=== PATIENT | female | born 1975 | race Hispanic/Latino ===

== ENCOUNTER 2017-04-12 10:14 | Emergency (ER) | payer BC ==
[2017-04-12] MEDS ORDERED: ONDANSETRON ODT 4 MG TAB ONE (11:00)
[2017-04-12 11:03] LABS: BASOPHILS % (AUTO) 0.5 % (0.0-5.0); HEMATOCRIT 44.5 % (36-48); MEAN CORPUSCULAR HEMOGLOBIN 29.2 pg (27.0-33.0); MEAN CORPUSCULAR HGB CONC 33.7 g/dL (32.0-36.0); MEAN CORPUSCULAR VOLUME 86.6 fL (79-99); MONOCYTES % (AUTO) 15.5 % (3.0-13.0); PLATELET COUNT (AUTO) 406 K/uL (130-400); RED BLOOD CELL COUNT(AUTO) 5.14 MIL/uL (4.00-5.50); RED CELL DISTRIBUTION WIDTH 13.9 % (11.0-15.5); WHITE BLOOD COUNT (AUTO) 4.9 K/uL (4.8-10.8)
[2017-04-12 11:06] LABS: APPEARANCE,URINE Cloudy (CLEAR); BILIRUBIN,URINE Negative (NEGATIVE); COLOR,URINE Dark Yellow (YELLOW); GLUCOSE, URINE (UA) Negative (NEGATIVE); KETONES,URINE >=80 mg/dL (NEGATIVE); LEUKOCYTE ESTERASE ,URINE Small (NEGATIVE); NITRATE,URINE Negative (NEGATIVE); OCCULT BLOOD,URINE Large (NEGATIVE); PH,URINE 5.5 (5.0-8.0); PROTEIN,URINE POS 2+ (NEGATIVE)
[2017-04-12 11:17] LABS: CREATININE 0.8 mg/dL (0.5-1.5); POTASSIUM 3.2 mmol/L (3.5-5.1)
[2017-04-12 11:18] LABS: HCG,QUAL RESULT NEGATIVE (NEGATIVE)
[2017-04-12 11:22] LABS: BILIRUBIN,TOTAL 0.4 mg/dL (0.2-1.0); TOTAL PROTEIN, SERUM 8.6 g/dL (6.0-8.3)
[2017-04-12 11:51] LABS: BACTERIA,URINE Many /HPF (None Seen); SQUAMOUS EPITHELIAL CELL,UR 30-50 /LPF (0-2)
[2017-04-12] MEDS ORDERED: POTASSIUM CHLORIDE 20 MEQ ERTAB PO ONE (12:00)
[2017-04-12] MEDS ORDERED: KETOROLAC TROMETHAMINE 30MG/ML ONE (12:01)
== END 2017-04-12 12:18 | disposition home or self-care (01) ==
LOC: EDH 10:14
DX: R10.84 Generalized abdominal pain (principal); B96.81 Helicobacter pylori [H. pylori] as the cause of diseases classified elsewhere; K21.9 Gastro-esophageal reflux disease without esophagitis
CPT/HCPCS: 36415; 80053; 81001; 81025; 82150; 83690; 85025; 86677; 87804 ×2; 96372; 99284; J1885

== ENCOUNTER 2022-04-30 14:23 | Emergency (ER) | payer BC ==
[~2022-04-30] VITALS: Ht 154.9 cm; Wt 81.6 kg
[2022-04-30 16:24] VITALS: BP 145/90
== END 2022-04-30 16:49 | disposition home or self-care (01) ==
LOC: EDH 14:23
DX: R03.0 Elevated blood-pressure reading, without diagnosis of hypertension (principal); R51.9 Headache, unspecified
CPT/HCPCS: 99284; 87635; 84484; 87804 ×2; 93005; C9803

== ENCOUNTER 2023-06-07 13:08 | Emergency (ER) | payer BC ==
[~2023-06-07] VITALS: Ht 154.9 cm; Wt 83.9 kg
[2023-06-07 13:52] LABS: SARS-CoV-2, RNA, NAAT NEGATIVE SARS CoV-2 (NEGATIVE)
[2023-06-07 13:54] LABS: INFLUENZA TYPE A Negative For Type A (NEGATIVE); INFLUENZA TYPE B Negative For Type B (NEGATIVE)
[2023-06-07] MEDS: IPRATROPIUM/ALBUTEROL SULFATE 3 ML SOLUTION IH ONE ×2 (15:06→17:09)
[2023-06-07 15:08] VITALS: PULSE 90; RESP 20
[2023-06-07] MEDS: 0.9%NACL 1000ML 1,000 ML IV ONE (15:18)
[2023-06-07] MEDS: BENZONATATE 100 MG CAPSULE PO ONE (15:19)
[2023-06-07] MEDS: KETOROLAC 30MG VIAL (30MG/ML) IVP ONE (15:19)
[2023-06-07] MEDS: DEXAMETHASONE SOD PHOSPHATE 4 MG/ML 1ML VIAL IVP ONE (15:19)
[2023-06-07 15:22] LABS: BASOPHILS # (AUTO) 0.05 K/uL (0.00-0.20); BASOPHILS % (AUTO) 0.4 % (0.0-5.0); EOSINOPHILS # (AUTO) 0.17 K/uL (0.00-0.70); EOSINOPHILS % (AUTO) 1.4 % (0.0-8.0); HEMATOCRIT 41.4 % (36-48); IMMATURE GRANULOCYTE ABSOLUTE 0.04 K/uL (0-1); LYMPHOCYTES # (AUTO) 1.2 K/uL (1.0-4.8); MEAN CORPUSCULAR HGB CONC 32.9 g/dL (32.0-36.0); MEAN CORPUSCULAR VOLUME 85.2 fL (79-99); MONOCYTES # (AUTO) 0.7 K/uL (0.1-1.0); MONOCYTES % (AUTO) 6.1 % (3.0-13.0); NEUTROPHILS # (AUTO) 9.7 K/uL (1.8-7.7); NEUTROPHILS % (AUTO) 81.8 % (40.0-77.0); PLATELET COUNT (AUTO) 410 K/uL (130-400); RED BLOOD CELL COUNT(AUTO) 4.86 MIL/uL (4.00-5.50); RED CELL DISTRIBUTION WIDTH 14.2 % (11.0-15.5); WHITE BLOOD COUNT (AUTO) 11.9 K/uL (4.8-10.8)
[2023-06-07 15:27] LABS: APPEARANCE,URINE CLEAR (CLEAR); BILIRUBIN,URINE NEGATIVE (NEGATIVE); COLOR,URINE LIGHT-YELLOW (YELLOW); GLUCOSE, URINE (UA) NEGATIVE (NEGATIVE); KETONES,URINE 5 mg/dL (NEGATIVE); LEUKOCYTE ESTERASE ,URINE NEGATIVE Leu/uL (NEGATIVE); NITRATE,URINE NEGATIVE (NEGATIVE); OCCULT BLOOD,URINE NEGATIVE (NEGATIVE); PROTEIN,URINE NEGATIVE (NEGATIVE); UROBILINOGEN,URINE 0.2 mg/dL (0.2-1.0)
[2023-06-07 15:33] LABS: HCG,QUALITATIVE URINE NEGATIVE (NEGATIVE)
[2023-06-07 15:35] LABS: CREATININE 0.7 mg/dL (0.5-1.5); POTASSIUM 3.4 mmol/L (3.5-5.1)
[2023-06-07 15:39] LABS: ADD UA MICROSCOPIC YES
[2023-06-07 15:40] LABS: ALBUMIN 4.1 g/dL (3.5-5.0); BILIRUBIN,TOTAL 0.4 mg/dL (0.2-1.0); TOTAL PROTEIN, SERUM 8.7 g/dL (6.0-8.3)
[2023-06-07 15:41] LABS: RBC,URINE 0-1 /HPF (0-1); SQUAMOUS EPITHELIAL CELL,UR RARE /HPF (0-2); WBC,URINE 0-1 /HPF (0-1)
[2023-06-07] MEDS: POTASSIUM BICARB/CIT AC 25 MEQ TABLET.EFF PO ONE (16:11)
[2023-06-07] MEDS: CEFTRIAXONE 1G VIAL IVPB ONE (16:11)
[2023-06-07] MEDS ORDERED: ALBU18HF7 IH (16:14)
[2023-06-07] MEDS ORDERED: METH4TAB3 PO (16:14)
[2023-06-07] MEDS ORDERED: AZIT250T PO (16:14)
[2023-06-07] MEDS ORDERED: IOHEXOL-350 75 ML VIAL IV ONE (16:45)
[2023-06-07 17:11] VITALS: PULSE 115; RESP 21
[2023-06-07 17:48] VITALS: BP 144/90; PULSE 97; RESP 20; O2SAT 9
== END 2023-06-07 17:58 | disposition home or self-care (01) ==
LOC: EDH 13:08
DX: J20.9 Acute bronchitis, unspecified (principal); R05.9 Cough, unspecified; R06.02 Shortness of breath; M54.6 Pain in thoracic spine; E87.6 Hypokalemia; R79.89 Other specified abnormal findings of blood chemistry; Z20.822 Contact with and (suspected) exposure to COVID-19
CPT/HCPCS: 99284; 96365; 71270; 71045; 96375; 87635; 80053; 85025; 85378; 87804 ×2; 81001; 81025; 36415; 94640 ×2; J1100; J7030; J0696; J1885; Q9967

== ENCOUNTER 2024-09-21 11:30 | Emergency (ER) | payer BC ==
[~2024-09-21] VITALS: Ht 152.4 cm; Wt 86.2 kg
[~2024-09-21 11:30] MED LIST: ALBU18HF7 IH; AZIT250T PO; METH4TAB3 PO
--- NOTE | 2024-09-21 11:37 | ERN ---
General Chief Complaint: Abdominal Pain Stated Complaint: ABDOMINAL PAIN Time Seen by MD: 11:33 Source: patient History of Present Illness Initial Comments Patient is a 49-year-old female coming in with abdominal pain. She states that she has been having it on and off for one week. No fever or chills mild nauseousness no vomiting. Allergies: Coded Allergies: latex (Unverified Allergy, Unknown, 09/21/24) Home Meds Active Scripts Azithromycin (Zithromax) 250 Mg Tablet, 1 PACK PO AD for 5 Days, #6 TAB 0 Refills Take 2 tablets on day 1 Take 1 tablet on days 2 through 5 Prov:[facility] 06/07/23 Albuterol Sulfate (Ventolin Hfa) 90 Mcg Hfa.aer.ad, 1-2 PUFF IH Q4HPRN PRN for COUGH, #1 INHALER 0 Refills Prov:[facility] 06/07/23 Methylprednisolone (Medrol) 4 Mg Tab.ds.pk, 1 PACK PO AD, #1 PACK 0 Refills Prov:[facility]IANA [facility] 06/07/23 Past Medical History Past Medical History: Other Medical History Other: GALLSTONES Past Surgical History: None ROS Dictation CONSTITUTIONAL: No chills, no fever, no weakness, no diaphoresis, no malaise. HEAD/FACE: No signs of trauma. EENT: No eye pain, no blurred vision, no tearing, no double vision, no ear pain, no ear discharge, no nose pain, no nasal congestion, no throat pain, no throat swelling, no mouth pain. RESPIRATORY: No cough, no orthopnea, no SOB, no stridor, no wheezing. CARDIOVASCULAR: No chest pain, no edema, no palpitations, no syncope. GASTROINTESTINAL/ABDOMINAL: abdominal pain, no constipation, no diarrhea, nausea, no vomiting. GENITOURINARY: No abnormal discharge, no dysuria, no frequent urination, no hematuria. No complaints of pain in the genitals. MUSCULOSKELETAL: No back pain, no gout, no joint pain, no joint swelling, no muscle pain, no muscle stiffness, no neck pain. INTEGUMENTARY: No change in color, no change in hair/nails, no dryness, no lesion, no lumps, no rash. NEUROLOGICAL/PSYCH: No anxiety, not depressed, no emotional problem, no headache, no numbness, no pre-existing deficit, no history of seizures, no tremors, no weakness. HEMATOLOGIC/LYMPHATIC: Not anemic, no history of blood clots, no apparent bleeding, no bruising, glands not swollen. All Systems Negative, Except as Noted. Physical Exam Physical Exam Dictation VITAL SIGNS: Reviewed. GENERAL APPEARANCE: Alert, oriented x3, no acute distress, obese. HEAD AND FACE: Non-traumatic. EYES: PERRL, pink conjunctivas, eyelid no trauma, anterior chamber clear. EARS: Pinnas intact and no signs of trauma or erythema. Ear canals clear and no discharge. TMs no erythema. NOSE: No discharge, no bleeding. OROPHARYNX: Mouth normal, teeth no caries, tongue pink. Pharynx clear, no erythema. Tonsils no exudates, no abscesses noted. Mucous membrane moist. NECK: Supple, non-tender, no thyromegaly, no masses, no JVD, no bruits. BREAST: Deferred. CHEST: No tenderness, no crepitus, no paradoxical movement, no retractions. LUNGS: Clear, well-ventilated, symmetric, no rales, no wheezing, no rhonchi, no stridor, good breath sounds bilaterally. HEART: Regular rate, regular rhythm, no murmur, no gallops. VASCULAR: No peripheral edema. ABDOMEN: Soft, positive bowel sounds, nondistended, no guarding, tenderness , no rebound, no masses no hepatomegaly, no splenomegaly, no Blandon's sign, no hernias. RECTAL: Deferred. GENITAL: Deferred. NEUROLOGICAL: Normal speech, gross motor function intact, gross sensory function intact. MUSCULOSKELETAL: Neck nontender, full range of motion, back nontender, full range of motion. EXTREMITIES: Nontender, full range of motion. SKIN: Color pink, dry, no turgor, no rash, no lacerations, no abrasions, no contusions. LYMPHATICS: Deferred. Results Laboratory and Microbiology Lab and Micro Result Laboratory Tests Test 09/21/24 11:56 09/21/24 12:56 White Blood Count 7.9 K/uL (4.8-10.8) Red Blood Count 4.97 MIL/uL (4.00-5.50) Hemoglobin 14.5 g/dL (12.0-16.0) Hematocrit 44.3 % (36-48) Mean Corpuscular Volume 89.1 fL (79-99) Mean Corpuscular Hemoglobin 29.2 pg (27.0-33.0) Mean Corpuscular Hemoglobin Concent 32.7 g/dL (32.0-36.0) Red Cell Distribution Width 13.7 % (11.0-15.5) Platelet Count 359 K/uL (130-400) Mean Platelet Volume 8.9 fL (7.5-10.5) Immature Granulocyte % (Auto) 0.6 % (0-1) Neutrophils (%) (Auto) 57.4 % (40.0-77.0) Lymphocytes (%) (Auto) 29.3 % (21.0-51.0) Monocytes (%) (Auto) 8.5 % (3.0-13.0) Eosinophils (%) (Auto) 3.7 % (0.0-8.0) Basophils (%) (Auto) 0.5 % (0.0-5.0) Neutrophils # (Auto) 4.5 K/uL (1.8-7.7) Lymphocytes # (Auto) 2.3 K/uL (1.0-4.8) Monocytes # (Auto) 0.7 K/uL (0.1-1.0) Eosinophils # (Auto) 0.29 K/uL (0.00-0.70) Basophils # (Auto) 0.04 K/uL (0.00-0.20) Absolute Immature Granulocyte (auto 0.05 K/uL (0-1) Nucleated Red Blood Cells 0.0 % (0.0-0.19) Sodium Level 136 mmol/L (136-145) Potassium Level 3.8 mmol/L (3.5-5.1) Chloride Level 104 mmol/L (101-111) Carbon Dioxide Level 26 mmol/L (21-32) Blood Urea Nitrogen 12 mg/dL (7-18) Creatinine 0.6 mg/dL (0.5-1.0) Glomerular Filtration Rate Calc 111 mL/min (>90) Random Glucose 93 mg/dL (70-105) Total Calcium 8.9 mg/dL (8.5-10.1) Total Bilirubin 0.4 mg/dL (0.2-1.0) Aspartate Amino Transf (AST/SGOT) 23 U/L (10-37) Alanine Aminotransferase (ALT/SGPT) 32 U/L (12-78) Alkaline Phosphatase 80 U/L (50-136) Troponin I High Sensitivity < 4 ng/L (4-50) L Total Protein 8.3 g/dL (6.0-8.3) Albumin 3.9 g/dL (3.5-5.0) Lipase 39 U/L (16-77) Urine Color LIGHT-YELLOW (YELLOW) Urine Appearance CLEAR (CLEAR) Urine pH 7.0 (5.0-8.0) Urine Specific [place] 1.016 (1.001-1.031) Urine Protein NEGATIVE mg/dL (NEGATIVE) Urine Glucose (UA) NEGATIVE mg/dL (NEGATIVE) Urine Ketones NEGATIVE mg/dL (NEGATIVE) Urine Occult Blood NEGATIVE (NEGATIVE) Urine Nitrate NEGATIVE (NEGATIVE) Urine Bilirubin NEGATIVE mg/dL (NEGATIVE) Urine Urobilinogen 0.2 mg/dL (0.2-1.0) Urine Leukocyte Esterase NEGATIVE [place]/uL Urine HCG, Qualitative NEGATIVE (NEGATIVE) Labs Reviewed?: Yes EKG/XRAY/US/CT/MRI EKG Comment 09/21/2024 time 11:54 a.m. Ventricular rate 76 Sinus rhythm [place] [address] wave elevation or depression MDM MDM: Differential diagnosis: Gastritis, colitis, gerd, STEMI, NSTEMI, Rationale: Tests considered and ordered secondary to shared decision making include: Previous outside records reviewed: Old ER visits. Risk of complication and/or morbidity or mortality of patient management: None Patient is a 49-year-old female coming in to be evaluated for generalized abdominal pain. Due to location of the pain in the epigastric region cardiac workup was provided due to to rule out a possible NSTEMI versus STEMI. Labor atory workup within normal limits. Patient received IV fluids as well as a GI cocktail states he feels much better. He will be discharged in stable condition with a diagnosis of gastritis. ED Course Orders Procedure Category Date Status Time Cbc With Differential LAB 09/21/24 Complete 11:34 Comprehensive LAB 09/21/24 Complete Metabolic Panel 11:34 Lipase LAB 09/21/24 Complete 11:34 Troponin I High LAB 09/21/24 Complete Sensitivity 11:34 12 Lead Ekg Tracing- EKG 09/21/24 Logged Technical 11:34 Urinalysis Profile LAB 09/21/24 Complete 12:53 ,Urine Test LAB 09/21/24 Complete 12:53 0.9%Nacl 1000ml (Ns PHA 09/21/24 Complete 1000ml) 13:00 Pantoprazole 40mg Inj PHA 09/21/24 Complete (Protonix 40mg Inj 13:00 Mag/Alum/Simeth 30ml PHA 09/21/24 Complete (Maalox Plus 30ml) 13:00 Dicyclomine Hcl PHA 09/21/24 Complete (Bentyl 10mg/5ml 13:00 Lidocaine Hcl 2% PHA 09/21/24 Complete Viscous (Lidocaine Hcl 13:00 Pantoprazole 40mg Inj PHA 09/21/24 Complete (Protonix 40mg Inj 13:00 Mag/Alum/Simeth 30ml PHA 09/21/24 Complete (Maalox Plus 30ml) 13:00 Dicyclomine Hcl PHA 09/21/24 Complete (Bentyl 10mg/5ml 13:00 Lidocaine Hcl 2% PHA 09/21/24 Complete Viscous (Lidocaine Hcl 13:00 Current Medications Medications (Trade) Dose Ordered Sig/Jose Elias Route PRN Reason Start Time Stop Time Status Last Admin Dose Admin Al Hydroxide/Mg Hydroxide (MAALox PLUS 30ML) 30 ml ONCE ONCE PO 09/21/24 13:00 09/21/24 13:01 DC 09/21/24 13:06 Al Hydroxide/Mg Hydroxide (MAALox PLUS 30ML) 30 ml STK-MED ONCE .ROUTE 09/21/24 13:00 09/21/24 13:00 DC Dicyclomine HCl (Bentyl 10mg/5ml Syrup) 10 mg ONCE ONCE PO 09/21/24 13:00 09/21/24 13:01 DC 09/21/24 13:06 Dicyclomine HCl (Bentyl 10mg/5ml Syrup) 10 mg STK-MED ONCE PO 09/21/24 13:00 09/21/24 13:00 DC Lidocaine HCl (Lidocaine HCl 2% Viscous) 10 ml ONCE ONCE PO 09/21/24 13:00 09/21/24 13:01 DC 09/21/24 13:06 Lidocaine HCl (Lidocaine HCl 2% Viscous) 15 ml STK-MED ONCE .ROUTE 09/21/24 13:00 09/21/24 13:00 DC Pantoprazole Sodium (PROTonix 40MG INJ) 40 mg ONCE ONCE IVP 09/21/24 13:00 09/21/24 13:01 DC 09/21/24 13:06 Pantoprazole Sodium (PROTonix 40MG INJ) 40 mg STK-MED ONCE .ROUTE 09/21/24 13:00 09/21/24 13:00 DC Sodium Chloride 1,000 ml @ 0 mls/hr Q0M ONCE IV 09/21/24 13:00 09/21/24 13:01 DC 09/21/24 13:08 Vital Signs Date Time Temp Pulse Resp B/P (MAP) Pulse Ox O2 Delivery O2 Flow Rate FiO2 09/21/24 11:46 98.2 79 16 157/94 96 Room Air* 0 21 09/21/24 11:41 98.2 79 16 157/94 96 0 DX & DISP Disposition: Discharge Departure Impression: Primary Impression: Gastritis Additional Impression: Dehydration Condition: Stable Scripts Pantoprazole Sodium (Protonix) 40 Mg Ectab 1 TAB PO DAILY for 30 Days, #30 TAB 0 Refills Prov: SEBAS POZO MD 09/21/24 Additional Instructions: FOLLOW-UP WITH PRIMARY CARE PROVIDER IN 1 TO 2 DAYS. TAKE MEDICATIONS DIRECTED HERE IN THE EMERGENCY ROOM. OKAY TO CONTINUE HOME MEDICATIONS UNLESS OTHERWISE DISCUSSED DURING YOUR VISIT IN THE EMERGENCY ROOM TODAY. RETURN TO YOUR NEAREST EMERGENCY ROOM IF SYMPTOMS WORSEN OR IF THERE IS NO IMPROVEMENT. CALL 911 IF YOU NEED IMMEDIATE ASSISTANCE. TAKE TYLENOL [id number] NEEDED AND IF NO CONTRAINDICATIONS ARE PRESENT. INCREASE ORAL HYDRATION. A WOUND CULTURE OR URINE CULTURE WAS ORDERED HERE IN THE EMERGENCY ROOM DEPARTMENT PLEASE FOLLOW-UP WITH PRIMARY CARE PROVIDER AND ADVISE THEM TO GET REPORTS FROM OUR FACILITY. IF YOU HAD ANY MODESTO WRAP/SPLINTS THAT WERE APPLIED HERE, PLEASE DO NOT REMOVE THEM UNTIL YOU SEE YOUR PRIMARY CARE OR SPECIALTY. Referrals: Referrals: SELF,REFERRAL (PCP) MARIE WESTON MD Time of Disposition: 13:22 SEBAS POZO MD Sep 21, 2024 11:37
[2024-09-21 12:01] LABS: BASOPHILS # (AUTO) 0.04 K/uL (0.00-0.20); BASOPHILS % (AUTO) 0.5 % (0.0-5.0); EOSINOPHILS # (AUTO) 0.29 K/uL (0.00-0.70); EOSINOPHILS % (AUTO) 3.7 % (0.0-8.0); HEMATOCRIT 44.3 % (36-48); IMMATURE GRANULOCYTE ABSOLUTE 0.05 K/uL (0-1); LYMPHOCYTES # (AUTO) 2.3 K/uL (1.0-4.8); LYMPHOCYTES % (AUTO) 29.3 % (21.0-51.0); MEAN CORPUSCULAR HEMOGLOBIN 29.2 pg (27.0-33.0); MEAN CORPUSCULAR HGB CONC 32.7 g/dL (32.0-36.0); MEAN CORPUSCULAR VOLUME 89.1 fL (79-99); MONOCYTES # (AUTO) 0.7 K/uL (0.1-1.0); MONOCYTES % (AUTO) 8.5 % (3.0-13.0); NEUTROPHILS # (AUTO) 4.5 K/uL (1.8-7.7); NEUTROPHILS % (AUTO) 57.4 % (40.0-77.0); PLATELET COUNT (AUTO) 359 K/uL (130-400); RED BLOOD CELL COUNT(AUTO) 4.97 MIL/uL (4.00-5.50); RED CELL DISTRIBUTION WIDTH 13.7 % (11.0-15.5); WHITE BLOOD COUNT (AUTO) 7.9 K/uL (4.8-10.8)
[2024-09-21 12:13] LABS: CREATININE 0.6 mg/dL (0.5-1.0); POTASSIUM 3.8 mmol/L (3.5-5.1)
[2024-09-21 12:18] LABS: ALBUMIN 3.9 g/dL (3.5-5.0); BILIRUBIN,TOTAL 0.4 mg/dL (0.2-1.0); TOTAL PROTEIN, SERUM 8.3 g/dL (6.0-8.3)
[2024-09-21 13:05] LABS: APPEARANCE,URINE CLEAR (CLEAR); BILIRUBIN,URINE NEGATIVE (NEGATIVE); COLOR,URINE LIGHT-YELLOW (YELLOW); GLUCOSE, URINE (UA) NEGATIVE (NEGATIVE); KETONES,URINE NEGATIVE (NEGATIVE); LEUKOCYTE ESTERASE ,URINE NEGATIVE Leu/uL (NEGATIVE); NITRATE,URINE NEGATIVE (NEGATIVE); OCCULT BLOOD,URINE NEGATIVE (NEGATIVE); PROTEIN,URINE NEGATIVE (NEGATIVE); UROBILINOGEN,URINE 0.2 mg/dL (0.2-1.0)
[2024-09-21 13:06] LABS: ADD UA MICROSCOPIC NO
[2024-09-21] MEDS: PANTOPrazole 40 MG/VIAL IVP ONE (13:06)
[2024-09-21] MEDS: MAG/ALUM/SIMETH 30 ML UDCUP ONE (13:06)
[2024-09-21] MEDS: LIDOCAINE HCL 2% VISCOUS 15 ML UDCUP ONE (13:06)
[2024-09-21] MEDS: LIDOCAINE HCL 2% VISCOUS 15 ML UDCUP PO ONE (13:06)
[2024-09-21] MEDS: DICYCLOMINE HCL 10 MG/5 ML ML PO ONE ×2 (13:06→13:07)
[2024-09-21] MEDS: PANTOPrazole 40 MG/VIAL ONE (13:06)
[2024-09-21] MEDS: MAG/ALUM/SIMETH 30 ML UDCUP PO ONE (13:06)
[2024-09-21] MEDS: 0.9%NACL 1000ML 1,000 ML IV ONE (13:08)
[2024-09-21 13:10] LABS: HCG,QUALITATIVE URINE NEGATIVE (NEGATIVE)
[2024-09-21] MEDS ORDERED: PANT40TA55 PO (13:23)
[2024-09-21 13:39] VITALS: BP 133/79; PULSE 70; RESP 16; TEMP 98.2; O2SAT 96
--- NOTE | 2024-09-21 13:48 | EKG ---
[facility] Test Date: 2024-09-21 Test Time: 11:54:34 Pat Name: LAUREN ALVARADO Department: ED Room: Gender: F [employer]: [id number] : 1975 Requested By: SEBAS POZO Order Number: [id number] Reading MD: José Castro Measurements Intervals [place] Rate: 76 P: 6 MN: 200 QRS: 37 QRSD: 98 T: -1 QT: 378 QTc: 427 Interpretive Statements Sinus rhythm Compared to ECG 04/30/2022 14:43:39 Sinus tachycardia no longer present Electronically Signed On 09-22-2024 16:16:48 CDT by José Castro Please click the below link to view image of tracing.
== END 2024-09-21 13:41 | disposition home or self-care (01) ==
LOC: EDH 11:30
DX: K29.70 Gastritis, unspecified, without bleeding (principal); E86.0 Dehydration; Z79.899 Other long term (current) drug therapy
CPT/HCPCS: 99284; 96374; 96361; 84484; 80053; 83690; 85025; 81003; 81025; 36415; 93005; J7030; J2470